=== PATIENT | female | born 1980 | race Caucasian/White ===

== ENCOUNTER 2016-11-20 20:54 | Emergency (ER) | payer SELFPAY ==
[2016-11-20] MEDS ORDERED: ONDANSETRON HCL INJ/PF 4 MG/2 ML SDV IV ONE (21:35)
[2016-11-20] MEDS ORDERED: NORMAL SALINE 1000 ML 1,000 ML IV ONE (21:35)
--- NOTE | 2016-11-20 21:40 | ER Document Report ---
ED GI/ - General Chief Complaint: Flu Symptoms Stated Complaint: NAUSEA Time Seen by Provider: 11/20/16 21:25 Notes: Patient is a 36-year-old female that comes emergency department for chief complaint of abdominal cramping and persistent diarrhea that started almost 3 days ago. She states she has diarrhea almost every 20 minutes. She denies fever, she does report nausea but denies vomiting. She reports general aching in her abdomen and back. 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 Past medical history of IUD and . TRAVEL OUTSIDE OF THE [place] IN LAST 30 DAYS: No Past Medical History - General Information source: Patient - Social History Smoking Status: Never Smoker Frequency of alcohol use: None Drug Abuse: None Lives with: Family Family History: Reviewed & Not Pertinent Patient has suicidal ideation: No Patient has homicidal ideation: No Renal/ Medical History: Denies: Hx Peritoneal Dialysis Skin Medical History: Reports Hx Psoriasis Past Surgical History: Reports: Hx Section - Immunizations Immunizations up to date: Yes Hx Diphtheria, Pertussis, Tetanus Vaccination: Yes Review of Systems - Review of Systems Constitutional: No symptoms reported EENT: No symptoms reported Cardiovascular: No symptoms reported Respiratory: No symptoms reported Gastrointestinal: See HPI Genitourinary: No symptoms reported Female Genitourinary: No symptoms reported Musculoskeletal: No symptoms reported Skin: No symptoms reported Hematologic/Lymphatic: No symptoms reported Neurological/Psychological: No symptoms reported Physical Exam - Vital signs Vitals: Temp Pulse Resp BP Pulse Ox 99.1 F 103 H 16 102/86 H 94 11/20/16 21:10 11/20/16 21:10 11/20/16 21:10 11/20/16 21:10 11/20/16 21:10 Interpretation: Normal - General General appearance: Appears well, Alert In distress: None - Patient intermittently appears mildly uncomfortable but she is not in any distress - HEENT Head: Normocephalic, Atraumatic Eyes: Normal Pupils: PERRL - Respiratory Respiratory status: No respiratory distress Chest status: Nontender Breath sounds: Normal Chest palpation: Normal - Cardiovascular Rhythm: Regular, Tachycardia - Borderline tachycardia Heart sounds: Normal auscultation, S1 appreciated, S2 appreciated Murmur: No - Abdominal Inspection: Normal Distension: No distension Bowel sounds: Hyperactive Tenderness: Tender - Very mild generalized tenderness, nonspecific, no guarding or rigidity Organomegaly: No organomegaly - Back Back: Normal, Nontender. No: Tender, CVA tenderness - Extremities General upper extremity: Normal inspection, Nontender, Normal color, Normal ROM , Normal temperature General lower extremity: Normal inspection, Nontender, Normal color, Normal ROM , Normal temperature, Normal weight bearing. No: Grey's sign - Neurological Neuro grossly intact: Yes Cognition: Normal Orientation: AAOx4 Venus Coma Scale Eye Opening: Spontaneous [place] Coma Scale Verbal: Oriented [place] Coma Scale Motor: Obeys Commands [place] Coma Scale Total: 15 Speech: Normal Motor strength normal: LUE, RUE, LLE, RLE Sensory: Normal - Psychological Associated symptoms: Normal affect, Normal mood - Skin Skin Temperature: Warm Skin Moisture: Dry Skin Color: Normal Course - Re-evaluation Re-evalutation: Tachycardia resolved after IV fluids. Mild generalized abdominal tenderness. Patient is well-appearing. Mild leukocytosis, however patient has no specific guarding, patient has had multiple episodes of diarrhea. Patient easily able to give diarrhea here tonight. Chemistry unremarkable. Urinalysis showing elevated specific gravity consistent with dehydration, shows hematuria although I believe this was contaminated because patient is currently on her menstrual cycle. She has no flank pain, she does not have any vomiting. C. difficile is negative. Stool culture pending. Discussed with patient. Because of her exposure to raw chicken and her persistent diarrhea, she will be treated with Cipro pending stool culture. Patient is in full agreement with this plan. Given work note, discussed follow- up recommendations, discussed return precautions. Patient verbalizes understanding and agreement. - Vital Signs Vital signs: Temp Pulse Resp BP Pulse Ox 99.1 F 84 18 135/85 H 97 11/20/16 21:10 11/21/16 00:31 11/21/16 00:31 11/21/16 00:31 11/21/16 00:31 - Laboratory Result Diagrams: 11/20/16 21:56 11/20/16 21:56 Laboratory results interpreted by me: 11/20/16 11/20/16 11/20/16 21:45 21:56 21:56 WBC 11.6 H RBC 5.50 H MCV 76 L MCH 23.7 L MCHC 31.3 L RDW 17.7 H Absolute Neutrophils 8.5 H Glucose 111 H Total Protein 6.2 L Urine Protein 30 H Urine Blood LARGE H Discharge - Discharge Clinical Impression: Diarrhea Qualifiers: Diarrhea type: unspecified type Qualified Code(s): R19.7 - Diarrhea, unspecified Abdominal pain Qualifiers: Abdominal location: generalized Qualified Code(s): R10.84 - Generalized abdominal pain Condition: Stable Disposition: HOME, SELF-CARE Additional Instructions: Continue to rehydrate at home. Take the cipro as directed to completion. We have a stool culture growing in our lab. Follow up with primary care. Return to the ED for any concerning or worsening symptoms including worsening pain, spiking fever, etc. Prescriptions: Ciprofloxacin HCl [Cipro 500 mg Tablet] 500 mg PO BID #14 tablet Forms: Return to Work
[2016-11-20 22:10] LABS: ABSOLUTE EOSINOPHILS # (AUTO) 0.2 10^3/uL (0.0-0.6); ABSOLUTE MONOCYTES (AUTO) 0.8 10^3/uL (0.1-1.4); ABSOLUTE NEUT (AUTO) 8.5 10^3/uL (1.7-8.2); BASOPHILS % (AUTO) 0.4 % (0-2); HEMATOCRIT 41.7 % (36.0-47.0); HGB HCT DIFFERENCE -2.7; LYMPHOCYTES % (AUTO) 17.1 % (13-45); MEAN CORPUSCULAR HEMOGLOBIN 23.7 pg (27.0-33.4); MEAN CORPUSCULAR HGB CONC 31.3 g/dL (32.0-36.0); MEAN CORPUSCULAR VOLUME 76 fl (80-97); MONOCYTES % (AUTO) 6.7 % (3-13); RED CELL DISTRIBUTION WIDTH 17.7 % (11.5-14.0); SEGMENTED NEUTROPHILS % (AUTO) 73.8 % (42-78); WHITE BLOOD COUNT 11.6 10^3/uL (4.0-10.5)
[2016-11-20 22:15] LABS: APPEARANCE,URINE SLIGHTLY-CLOUDY; BILIRUBIN,URINE NEGATIVE (NEGATIVE); GLUCOSE, URINE NEGATIVE (NEGATIVE); KETONES,URINE NEGATIVE (NEGATIVE); LEUKOCYTE ESTERASE,URINE NEGATIVE (NEGATIVE); NITRITE,URINE NEGATIVE (NEGATIVE); PROTEIN,URINE 30 mg/dL (NEGATIVE); UROBILINOGEN,URINE NEGATIVE mg/dL (<2.0)
[2016-11-20 22:27] LABS: ALANINE AMINOTRANSFERASE 25 U/L (9-52); ALBUMIN 3.5 g/dL (3.5-5.0); ALKALINE PHOSPHATASE 103 U/L (38-126); ANION GAP 10 (5-19); ASPARTATE AMINO TRANSFERASE 16 U/L (14-36); BILIRUBIN,DIRECT 0.3 mg/dL (0.0-0.4); BILIRUBIN,TOTAL 0.3 mg/dL (0.2-1.3); BLOOD UREA NITROGEN 20 mg/dL (7-20); CALCIUM 8.7 mg/dL (8.4-10.2); CARBON DIOXIDE 24 mmol/L (22-30); CHLORIDE 106 mmol/L (98-107); CREATININE RESULT 0.59 mg/dL (0.52-1.25); GLUCOSE 111 mg/dL (75-110); SODIUM 140.2 mmol/L (137-145); TOTAL PROTEIN 6.2 g/dL (6.3-8.2)
[2016-11-20] MEDS ORDERED: HYDROCODONE/ACETAMINOPHEN 5-325 MG TABLET PO ONE (23:26)
[2016-11-21] MEDS ORDERED: CIPROFLOXACIN HCL 500 MG TABLET PO ONE (00:10)
[2016-11-21] MEDS ORDERED: HYDROCODONE/ACETAMINOPHEN 5-325 MG 6 TAB/DSPK PO PRN (00:12)
[2016-11-21 00:33] VITALS: BP 135/85
== END 2016-11-21 00:31 | disposition home or self-care (01) ==
LOC: ER 20:54
DX: R19.7 Diarrhea, unspecified (principal); R10.84 Generalized abdominal pain; R11.0 Nausea
CPT/HCPCS: 99284; 96361; 96374; 36415; 87045; 89055; 87205; 85025; 81025; 87077; 80053; 81001; 87186; 87493 ×2; J2405; J7030

== ENCOUNTER 2017-12-28 19:05 | Emergency (ER) | payer SELFPAY ==
[2017-12-28] MEDS ORDERED: OXYCODONE-ACETAMINOPHEN 5-325 MG TABLET PO ONE (20:37)
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
--- NOTE | 2017-12-28 21:11 | RADIOLOGY REPORT (SQ) ---
XR LUMBAR SPINE ANTEROPOSTERIOR, LATERAL, AND OBLIQUES, XR THORACIC SPINE 2 VIEWS HISTORY: Back pain. COMPARISON: None. FINDINGS/IMPRESSION: THORACIC SPINE: Alignment is maintained without static listhesis. Thoracic vertebral body heights are intact. Disc spaces are preserved. Visualized lungs are clear. LUMBAR SPINE: 5 non-rib bearing lumbar-type vertebra. Alignment is maintained without static listhesis. Vertebral body heights and disc spaces are preserved. No evidence of spondylolysis on the oblique views.. IUD in the pelvis.
[2017-12-28 21:44] LABS: APPEARANCE,URINE SLIGHTLY-CLOUDY; BILIRUBIN,URINE NEGATIVE (NEGATIVE); COLOR,URINE YELLOW; GLUCOSE, URINE NEGATIVE (NEGATIVE); KETONES,URINE NEGATIVE (NEGATIVE); LEUKOCYTE ESTERASE,URINE TRACE (NEGATIVE); NITRITE,URINE NEGATIVE (NEGATIVE); PROTEIN,URINE NEGATIVE (NEGATIVE); URINE SPECIFIC GRAVITY 1.025; UROBILINOGEN,URINE NEGATIVE mg/dL (<2.0)
[2017-12-28] MEDS ORDERED: HYDROCODONE/ACETAMINOPHEN 5-325 MG (6 TAB/ER DISP) PO PRN (22:07)
[2017-12-28 23:39] VITALS: BP 150/96
== END 2017-12-28 23:42 | disposition home or self-care (01) ==
LOC: ER 19:05
DX: M54.9 Dorsalgia, unspecified (principal); Z59.0 Homelessness; W19.XXXA Unspecified fall, initial encounter; Y92.099 Unspecified place in other non-institutional residence as the place of occurrence of the external cause; F17.200 Nicotine dependence, unspecified, uncomplicated
CPT/HCPCS: 72070; 72110; 81001; 99284

== ENCOUNTER 2018-01-31 10:06 | Emergency (ER) | payer SELFPAY ==
[2018-01-31 10:21] VITALS: BP 139/82
[2018-01-31] MEDS ORDERED: KETOROLAC TROMETHAMINE 60 MG/2 ML SDV IM ONE (11:54)
[2018-01-31] MEDS ORDERED: LIDOCAINE 5% (700 MG) TRANSDERMAL ADH..PATCH TP ONE (11:54)
[2018-01-31] MEDS ORDERED: DEXAMETHASONE SOD PHOS INJ 10 MG/1 ML VIAL IM ONE (11:54)
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
== END 2018-01-31 12:41 | disposition home or self-care (01) ==
LOC: ER 10:06
DX: M54.42 Lumbago with sciatica, left side (principal); F17.200 Nicotine dependence, unspecified, uncomplicated
CPT/HCPCS: 99283; 96372; J1885; J1100

== ENCOUNTER 2018-02-22 03:39 | Emergency (ER) | payer MEDICAID ==
[2018-02-22 03:46] VITALS: BP 139/72
[2018-02-22] MEDS ORDERED: DEXAMETHASONE SOD PHOS INJ 10 MG/1 ML VIAL IM ONE (04:34)
--- NOTE | 2018-02-22 04:38 | ER Document Report ---
HPI - HPI Patient complains to provider of: sore throat Time Seen by Provider: 02/22/18 04:26 Pain Level: 5 Context: Patient is a 37-year-old female that comes to the emergency department for chief complaint of 3 days of sore throat, she states that she also feels swollen glands along the front of her neck, she states she has increasingly painful swallowing. She reports some plugged ears intermittently as well, denies ear pain, denies fever, denies sinus pain or drainage, denies cough. She denies any daily medications. She denies . Past Medical History - General Information source: Patient - Social History Smoking Status: Never Smoker Frequency of alcohol use: None Drug Abuse: None Lives with: Family Family History: Reviewed & Not Pertinent - Medical History Medical History: Negative Renal/ Medical History: Denies: Hx Peritoneal Dialysis Skin Medical History: Reports Hx Psoriasis Past Surgical History: Reports: Hx Section - Immunizations Immunizations up to date: Yes Hx Diphtheria, Pertussis, Tetanus Vaccination: Yes Vertical Provider Document - CONSTITUTIONAL General Appearance: WD/WN, No Apparent Distress - INFECTION CONTROL TRAVEL OUTSIDE OF THE [place] IN LAST 30 DAYS: No - HEENT HEENT: Atraumatic, Normocephalic. negative: Normal ENT Exam - Erythematous rash over the posterior pharynx, normal uvula, normal tonsils, normal tongue, unremarkable oropharyngeal exam otherwise, patent airway - NECK Neck: Lymphadenopathy-Left, Lymphadenopathy-Right, Other - No nuchal rigidity - RESPIRATORY Respiratory: Breath Sounds Normal, No Respiratory Distress - CARDIOVASCULAR Cardiovascular: Regular Rate, Regular Rhythm - GI/ABDOMEN Gastrointestinal: Abdomen Soft, Abdomen Non-Tender - BACK Back: Normal Inspection - MUSCULOSKELETAL/EXTREMETIES Musculoskeletal/Extremeties: MAEW, FROM, Non-Tender - NEURO Level of Consciousness: Awake, Alert, Appropriate - DERM Integumentary: Warm, Dry, No Rash Course - Re-evaluation Re-evalutation: Patient has erythematous rash over the posterior pharynx, no uvular edema, no notable swelling of the tonsils, no peritonsillar abscess, no Joey's angina. Strep test is positive. She does have anterior cervical adenopathy. Unremarkable respiratory exam, unremarkable vital signs. Treated with dexamethasone, after discussion proceeded with treatment with penicillin G IM. Discussed expectations, follow-up, return precautions. Patient states understanding and agreement. - Vital Signs Vital signs: Temp Pulse Resp BP Pulse Ox 98.5 F 83 18 139/72 H 96 02/22/18 03:46 02/22/18 03:46 02/22/18 03:46 02/22/18 03:46 02/22/18 03:46 Discharge - Discharge Clinical Impression: Strep pharyngitis, Anterior cervical adenopathy Condition: Stable Disposition: HOME, SELF-CARE Additional Instructions: You tested positive for strep throat. Your examination is consistent with this. You have been treated with penicillin G and dexamethasone. This should complete her treatment. Take Tylenol or ibuprofen for pain, drink plenty of fluids, symptoms should improve with time. Follow-up with primary care. Return if you worsen including spiking fever, increased swelling or difficulty swallowing, or any other concerning or worsening symptoms.
[2018-02-22] MEDS ORDERED: PENICILLIN G BENZATHINE 1.2 MILLION UNIT/2 ML DISP.SYRIN IM ONE (05:23)
== END 2018-02-22 05:30 | disposition home or self-care (01) ==
LOC: ER 03:39
DX: J02.0 Streptococcal pharyngitis (principal); R59.0 Localized enlarged lymph nodes; R13.10 Dysphagia, unspecified
CPT/HCPCS: 99283; 96372; 96374; 87880; J0561; J1100

== ENCOUNTER 2018-04-06 23:47 | Emergency (ER) | payer MEDICAID ==
[2018-04-07] MEDS ORDERED: DEXAMETHASONE SOD PHOS INJ 10 MG/1 ML VIAL IM ONE (01:34)
--- NOTE | 2018-04-07 01:35 | ER Document Report ---
HPI - HPI Patient complains to provider of: Sore throat Time Seen by Provider: 04/07/18 01:19 Pain Level: 4 Context: Patient is a 37-year-old female that comes to the emergency department for chief complaint of 1 week of symptoms of worsening sore throat, swelling at the front of her neck, some congestion, and now she has ear pain in both ears but much worse here pain on the right. She denies fever, vomiting, headache, she is still able to swallow. She denies any daily medications. She smokes, denies alcohol or recreational drugs. Denies any medical history otherwise. - EENT EENT: REPORTS: Sore Throat, Ear Pain Past Medical History - General Information source: Patient - Social History Smoking Status: Current Every Day Smoker Chew tobacco use (# tins/day): No Frequency of alcohol use: Rare Lives with: Family Family History: Reviewed & Not Pertinent Patient has suicidal ideation: No Patient has homicidal ideation: No Neurological Medical History: Reports: Hx Migraine Renal/ Medical History: Denies: Hx Peritoneal Dialysis Skin Medical History: Reports Hx Psoriasis Past Surgical History: Reports: Hx Section - Immunizations Immunizations up to date: Yes Hx Diphtheria, Pertussis, Tetanus Vaccination: Yes Vertical Provider Document - CONSTITUTIONAL General Appearance: WD/WN, No Apparent Distress, Obese - INFECTION CONTROL TRAVEL OUTSIDE OF THE [place] IN LAST 30 DAYS: No - HEENT HEENT: Atraumatic, Normocephalic. negative: Normal ENT Exam - Right-sided otitis media with bulging tympanic membrane, erythema, loss of landmarks. Normal mastoid. Mild sinus congestion. Right-sided tonsillitis with exudates, this is mild, mild posterior erythema. Clear airway. Unremarkable uvula. No evidence of abscess. - NECK Neck: Other - Mild anterior cervical adenopathy, slightly worse on the right - RESPIRATORY Respiratory: Breath Sounds Normal, No Respiratory Distress - CARDIOVASCULAR Cardiovascular: Regular Rate, Regular Rhythm - GI/ABDOMEN Gastrointestinal: Abdomen Soft, Abdomen Non-Tender - BACK Back: Normal Inspection - MUSCULOSKELETAL/EXTREMETIES Musculoskeletal/Extremeties: MAEW, FROM, Non-Tender - NEURO Level of Consciousness: Awake, Alert, Appropriate - DERM Integumentary: Warm, Dry, No Rash Course - Vital Signs Vital signs: Temp Pulse Resp BP Pulse Ox 98.1 F 98 18 141/76 H 99 04/06/18 23:48 04/06/18 23:48 04/06/18 23:48 04/06/18 23:48 04/06/18 23:48 Discharge - Discharge Clinical Impression: Right ear pain Pharyngitis Qualifiers: Pharyngitis/tonsillitis etiology: unspecified etiology Qualified Code(s): J02.9 - Acute pharyngitis, unspecified Otitis media Qualifiers: Otitis media type: suppurative Chronicity: acute Laterality: right Recurrence: non-recurrent Spontaneous tympanic membrane rupture: without spontaneous rupture Qualified Code(s): H66.001 - Acute suppurative otitis media without spontaneous rupture of ear drum, right ear Condition: Stable Disposition: HOME, SELF-CARE Additional Instructions: Your strep test is negative. Your evaluation is consistent with a viral illness and a secondary right sided middle ear infection. Take antibiotics as prescribed to completion. Take Tylenol or ibuprofen for pain. Follow-up with primary care. Return for any concerning or worsening symptoms including difficulty swallowing, difficulty breathing, spiking fever, severe headache, vomiting, or any other concerning or worsening symptoms. Prescriptions: Amoxicillin Trihydrate [Amoxil 500 mg Capsule] 1,000 mg PO TID 7 Days #42 capsule Referrals: ANIKA MARTINEZ MD [Primary Care Provider] - Follow up as needed
[2018-04-07] MEDS ORDERED: AMOXICILLIN TRIHYDRATE 500 MG CAPSULE PO ONE (02:08)
[2018-04-07 02:27] VITALS: BP 138/64
== END 2018-04-07 02:28 | disposition home or self-care (01) ==
LOC: ER 23:47
DX: J02.9 Acute pharyngitis, unspecified (principal); H66.001 Acute suppurative otitis media without spontaneous rupture of ear drum, right ear; F17.200 Nicotine dependence, unspecified, uncomplicated
CPT/HCPCS: 99283; 96372; 87070; 87880; J1100

== ENCOUNTER → 2018-07-14 | Outpatient (CLI) | payer MEDICAID ==
--- NOTE | 2018-07-14 12:15 | RADIOLOGY REPORT (SQ) ---
EXAM DESCRIPTION: ANKLE RIGHT COMPLETE COMPLETED DATE/TIME: 07/14/2018 12:04 pm REASON FOR STUDY: sprain of rt ankle, unspecified, initial encounter, rolled ankle S93.401A COMPARISON: None. NUMBER OF VIEWS: Three views right ankle. LIMITATIONS: None. FINDINGS: Generalized soft tissue swelling without fracture or dislocation. No ankle joint effusion . OTHER: No other significant finding. IMPRESSION: Soft tissue swelling without fracture. TECHNICAL DOCUMENTATION: JOB ID: [id number] Reading location - IP/workstation name: [email or web address]
== END ==
LOC: RAD 11:40
PROVIDERS: ATTEND Nurse Practitioner Acute Care
DX: S93.401A Sprain of unspecified ligament of right ankle, initial encounter (principal); X58.XXXA Exposure to other specified factors, initial encounter; Y93.9 Activity, unspecified; Y92.9 Unspecified place or not applicable

== ENCOUNTER 2018-08-22 15:25 | Emergency (ER) | payer OTHER, MEDICAID ==
--- NOTE | 2018-08-22 18:16 | ER Document Report ---
HPI - HPI Time Seen by Provider: 08/22/18 17:17 Pain Level: 4 Notes: Patient is an otherwise healthy 38-year-old female presenting to the emergency department chief complaint of thoracic back pain. Patient reports that she bent over while at work and felt a pop in the middle of her back. Patient denies any bowel incontinence, urinary retention or fever. She has had no numbness, tingling or saddle anesthesia. - CONSTITUTIONAL Constitutional: DENIES: Fever, Chills - REPRODUCTIVE Reproductive: DENIES: : Past Medical History - General Information source: Patient - Social History Smoking Status: Current Some Day Smoker Chew tobacco use (# tins/day): No Frequency of alcohol use: None Drug Abuse: None Family History: Reviewed & Not Pertinent Patient has suicidal ideation: No Patient has homicidal ideation: No Neurological Medical History: Reports: Hx Migraine Renal/ Medical History: Denies: Hx Peritoneal Dialysis Skin Medical History: Reports Hx Psoriasis Past Surgical History: Reports: Hx Section - Immunizations Immunizations up to date: Yes Hx Diphtheria, Pertussis, Tetanus Vaccination: Yes Vertical Provider Document - CONSTITUTIONAL Notes: PHYSICAL EXAMINATION: GENERAL: Well-appearing, well-nourished and in no acute distress. HEAD: Atraumatic, normocephalic. EYES: Pupils equal round extraocular movements intact, conjunctiva are normal. ENT: Nares patent NECK: Normal range of motion LUNGS: No respiratory distress Musculoskeletal: Normal range of motion, tenderness to palpation to paraspinous muscles in the thoracic region. No vertebral tenderness, step-off or deformity. NEUROLOGICAL: Normal speech, normal gait. PSYCH: Normal mood, normal affect. SKIN: Warm, Dry, normal turgor, no rashes or lesions noted. - INFECTION CONTROL TRAVEL OUTSIDE OF THE [place] IN LAST 30 DAYS: No Course - Re-evaluation Re-evalutation: Physical examination as well as history is most consistent with musculoskeletal strain. Patient will be treated symptomatically and discharged home with ED return precautions. Patient is agreeable to same. - Vital Signs Vital signs: Temp Pulse Resp BP Pulse Ox 98.3 F 88 16 145/61 H 96 08/22/18 15:37 08/22/18 15:37 08/22/18 15:37 08/22/18 15:37 08/22/18 15:37 Discharge - Discharge Clinical Impression: Strain of thoracic back region Condition: Stable Disposition: HOME, SELF-CARE Additional Instructions: You have been seen in the Emergency Department (ED) today for back pain. Your workup and exam have not shown any acute abnormalities and you are likely suffering from muscle strain or possible problems with your discs, but there is no treatment that will fix your symptoms at this time. Please take the medication that has been prescribed as directed. You should also purchase a local lidocaine cream such as "aspercreme with lidocaine" and use per bottle instructions to the affected area. Apply heat to the area as often as you are able. Continue to keep active and avoid prolonged periods of bed rest. Please follow up with your doctor as soon as possible regarding today's ED visit and your back pain. Return to the ED for worsening back pain, fever, weakness or numbness of either leg, or if you develop either (1) an inability to urinate or have bowel movements, or (2) loss of your ability to control your bathroom functions (if you start having "accidents"), or if you develop other new sympt oms that concern you.concern you. Prescriptions: Cyclobenzaprine HCl [Flexeril 10 mg Tablet] 10 mg PO TIDP PRN #15 tab PRN Reason: Lidocaine [Lidoderm 5% (700 mg) Transdermal Patch] 1 patch TP DAILY #30 adh..patch Forms: Special Work Note Referrals: ANIKA MARTINEZ MD [Primary Care Provider] - Follow up as needed
[2018-08-22 18:25] VITALS: BP 145/76
== END 2018-08-22 18:28 | disposition home or self-care (01) ==
LOC: ER 15:25
DX: S29.012A Strain of muscle and tendon of back wall of thorax, initial encounter (principal); M54.6 Pain in thoracic spine; X50.1XXA Overexertion from prolonged static or awkward postures, initial encounter; Y99.0 Civilian activity done for income or pay; F17.200 Nicotine dependence, unspecified, uncomplicated
CPT/HCPCS: 99283

== ENCOUNTER 2019-02-20 18:15 | Emergency (ER) | payer SELFPAY ==
[2019-02-20 19:01] VITALS: BP 150/79
--- NOTE | 2019-02-20 19:27 | ER Document Report ---
HPI - HPI Time Seen by Provider: 02/20/19 19:20 Pain Level: 3 Notes: Patient is a 38-year-old female with no significant past medical history who presents complaining of bilateral ear pain and decreased hearing worse on the right since getting over a sinus infection recently. Patient states that she was not using any cold medicines. She is able to eat and drink without difficulty. She is urinating normally and having normal bowel movements. Denies drug allergies. Denies any headache, fever, neck pain, sore throat, chest pain, palpitations, syncope, cough, shortness of breath, wheeze, dyspnea, abdominal pain, nausea/vomiting/diarrhea, urinary retention, dysuria, hematuria, or rash. - ROS Systems Reviewed and Negative: Yes All other systems reviewed and negative - CONSTITUTIONAL Constitutional: REPORTS: Chills - EENT EENT: REPORTS: Ear Pain - REPRODUCTIVE Reproductive: DENIES: : Past Medical History - Social History Smoking Status: Current Every Day Smoker Family History: Reviewed & Not Pertinent Patient has suicidal ideation: No Patient has homicidal ideation: No Neurological Medical History: Reports: Hx Migraine Renal/ Medical History: Denies: Hx Peritoneal Dialysis Skin Medical History: Reports Hx Psoriasis Past Surgical History: Reports: Hx Section - Immunizations Immunizations up to date: Yes Hx Diphtheria, Pertussis, Tetanus Vaccination: Yes Vertical Provider Document - CONSTITUTIONAL Agree With Documented VS: Yes Notes: PHYSICAL EXAMINATION: GENERAL: Well-appearing, well-nourished and in no acute distress. A&Ox4. Answers questions appropriately. Moves comfortably w/o notable distress HEAD: Atraumatic, normocephalic. EYES: Pupils equal round and reactive to light, extraocular movements intact, sclera anicteric, conjunctiva are normal. ENT: EAC clear b/l. Rt TM bulging and erythematous. Lt TM fluid. Nares patent and with clear discharge. oropharynx no erythema without exudates. No tonsilar hypertrophy without erythema or exudate. No palatine shift. Uvula midline. No tongue protrusion. No drooling, hoarseness, or airway compromise. Moist mucous membranes. No sinus tenderness. NECK: Normal range of motion, supple without lymphadenopathy. No rigidity/meningismus. LUNGS: Breath sounds clear to auscultation bilaterally and equal. No wheezes rales or rhonchi. No retractions HEART: Regular rate and rhythm without murmurs, rubs, gallops. ABDOMEN: Soft, nontender, nondistended abdomen. No guarding, no rebound. Normal bowel sounds present. No CVA tenderness bilaterally. NEUROLOGICAL: Normal speech, normal gait. PSYCH: Normal mood, normal affect. SKIN: Warm, Dry, normal turgor, no rashes or lesions noted. - INFECTION CONTROL TRAVEL OUTSIDE OF THE [place] IN LAST 30 DAYS: No Course - Re-evaluation Re-evalutation: 02/20/19 19:25 Patient is an afebrile, well-hydrated, 38-year-old female who presents with acute otitis media of the right ear. Vitals are acceptable without significant tachycardia, tachypnea, or hypoxia. PE is otherwise unremarkable. Patient is nontoxic-appearing and is tolerating p.o. without difficulty. No labs or imaging warranted. Low suspicion for any mastoiditis, meningitis, sepsis, peritonsillar/pharyngeal abscess, respiratory compromise, Joey's, or other emergent systemic condition at this time. Patient is aware this condition can change from initial presentation and she needs to monitor symptoms closely. I will send her home with a prescription for amoxicillin. Conservative measures otherwise for symptoms. Recheck with your PCM in 2-3 days. Return to the ED with any worsening/concerning symptoms otherwise as reviewed in discharge. Patient is in agreement. - Vital Signs Vital signs: Temp Pulse Resp BP Pulse Ox 97.8 F 82 20 150/79 H 97 02/20/19 18:59 02/20/19 18:59 02/20/19 18:59 02/20/19 18:59 02/20/19 18:59 Discharge - Discharge Clinical Impression: Acute otitis media, right Condition: Stable Disposition: HOME, SELF-CARE Additional Instructions: Maintain adequate fluid intake tylenol/ibuprofen as needed alternating every 3 hours for fever/body ache over the counter cold medication as needed for symptoms Humidified air may help Wash your hands regularly Wear a mask when coughing F/u: with your PCM in 2-3 days for a recheck Return to the ED with any fever, altered mental status/behavior, chest pain, palpitations, syncope, headache, neck pain/stiffness, shortness of breath, chest pains, wheezing, drooling, trouble swallowing/breathing, abdominal pain, n/v/d, rash, or worsening/concerning symptoms otherwise. Prescriptions: Amoxicillin Trihydrate [Amoxil 875 mg Tablet] 1 tab PO BID #20 tablet Forms: Elevated Blood Pressure, Smoking Cessation Education Referrals: ANIKA MARTINEZ MD [Primary Care Provider] - Follow up as needed ANGY BARAHONA DO [ASSOCIATE] - Follow up as needed
== END 2019-02-20 19:31 | disposition home or self-care (01) ==
LOC: ER 18:15
DX: H66.91 Otitis media, unspecified, right ear (principal); H92.03 Otalgia, bilateral; R68.83 Chills (without fever); F17.200 Nicotine dependence, unspecified, uncomplicated
CPT/HCPCS: 99282